=== PATIENT | male | born 1995 | race American Indian/Alaskan Native ===

== ENCOUNTER 2020-07-16 09:35 | Emergency (ER) | payer SELFPAY ==
[2020-07-16 10:32] VITALS: BP 132/80
--- NOTE | 2020-07-16 10:36 | Emergency Department Report ---
ED Abdominal Pain HPI - General Chief Complaint: Abdominal Pain Stated Complaint: ABD PAIN, BACK PAIN Time Seen by Provider: 07/16/20 10:32 Source: patient Mode of arrival: Ambulatory Limitations: No Limitations - History of Present Illness Initial Comments: Patient is a 24-year-old male presents emergency room complaints of left lower quadrant abdominal pain and left flank pain that began this morning around 4:45 AM. He has associated nausea and vomiting. He states he has had a couple episodes of diarrhea. He denies ever having this pain in the past. He denies any known sick contacts or recent travel. He states he last ate a burrito last night. He denies any dysuria, urinary frequency, dark urine, odor to the urine, hematochezia, melena, hematemesis, fever, pain or swelling in the testicles. Patient denies any past medical history or past surgeries. No allergies to medications. - Related Data Previous Rx's Medication Instructions Recorded Last Taken Type Ondansetron [Zofran Odt] 4 mg PO Q8HR PRN #10 tab.rapdis 07/16/20 Unknown Rx traMADoL [Ultram 50 MG tab] 50 mg PO Q6HR PRN #7 tablet 07/16/20 Unknown Rx Allergies Allergy/AdvReac Type Severity Reaction Status Date / Time No Known Allergies Allergy Verified 07/16/20 10:32 ED Review of Systems ROS: Stated complaint: ABD PAIN, BACK PAIN Other details as noted in HPI Comment: All other systems reviewed and negative ED Past Medical Hx - Past Medical History Previous Medical History?: No - Surgical History Past Surgical History?: No - Social History Smoking Status: Never Smoker Substance Use Type: None - Medications Home Medications: Home Medications Medication Instructions Recorded Confirmed Last Taken Type Ondansetron [Zofran Odt] 4 mg PO Q8HR PRN #10 tab.rapdis 07/16/20 Unknown Rx traMADoL [Ultram 50 MG tab] 50 mg PO Q6HR PRN #7 tablet 07/16/20 Unknown Rx ED Physical Exam - General Limitations: No Limitations General appearance: alert, in no apparent distress - Head Head exam: Present: atraumatic, normocephalic - Eye Eye exam: Present: normal appearance - ENT ENT exam: Present: mucous membranes moist - Respiratory Respiratory exam: Present: normal lung sounds bilaterally. Absent: respiratory distress, wheezes, rales, rhonchi, stridor, chest wall tenderness, decreased breath sounds, prolonged expiratory - Cardiovascular Cardiovascular Exam: Present: regular rate, normal rhythm, normal heart sounds. Absent: systolic murmur, diastolic murmur, rubs, gallop - GI/Abdominal GI/Abdominal exam: Present: soft, tenderness (LLQ), normal bowel sounds. Abs ent: distended, guarding, rebound, rigid - Back Exam Back exam: Present: CVA tenderness (L). Absent: CVA tenderness (R) - Neurological Exam Neurological exam: Present: alert, oriented X3 - Psychiatric Psychiatric exam: Present: normal affect, normal mood - Skin Skin exam: Present: warm, dry, intact ED Course Vital Signs 07/16/20 10:30 Temperature 98.5 F Pulse Rate 67 Respiratory 20 Rate Blood Pressure 132/80 O2 Sat by Pulse 98 Oximetry ED Medical Decision Making - Lab Data Result diagrams: 07/16/20 10:47 07/16/20 10:47 Lab Results 07/16/20 07/16/20 07/16/20 Range/Units 10:47 10:47 Unknown WBC 13.4 H (4.5-11.0) K/mm3 RBC 4.92 (3.65-5.03) M/mm3 Hgb 14.1 (11.8-15.2) gm/dl Hct 43.1 (35.5-45.6) % MCV 88 (84-94) fl MCH 29 (28-32) pg MCHC 33 (32-34) % RDW 13.4 (13.2-15.2) % Plt Count 189 (140-440) K/mm3 Lymph % (Auto) 8.4 L (13.4-35.0) % [place] % (Auto) 6.0 (0.0-7.3) % Eos % (Auto) 0.0 (0.0-4.3) % Baso % (Auto) 0.4 (0.0-1.8) % Lymph # (Auto) 1.1 L (1.2-5.4) K/mm3 [place] # (Auto) 0.8 (0.0-0.8) K/mm3 Eos # (Auto) 0.0 (0.0-0.4) K/mm3 Baso # (Auto) 0.1 (0.0-0.1) K/mm3 Seg Neutrophils % 85.2 H (40.0-70.0) % Seg Neutrophils # 11.4 H (1.8-7.7) K/mm3 Sodium 139 (137-145) mmol/L Potassium 4.3 (3.6-5.0) mmol/L Chloride 103.5 (98-107) mmol/L Carbon Dioxide 21 L (22-30) mmol/L Anion Gap 19 mmol/L BUN 16 (9-20) mg/dL Creatinine 1.5 H (0.8-1.3) mg/dL Estimated GFR > 60 ml/min BUN/Creatinine Ratio 11 % Glucose 147 H (75-100) mg/dL Calcium 9.2 (8.4-10.2) mg/dL Total Bilirubin 0.20 (0.1-1.2) mg/dL AST 18 (5-40) units/L ALT 24 (7-56) units/L Alkaline Phosphatase 58 (35-129) units/L Total Protein 7.2 (6.3-8.2) g/dL Albumin 3.9 (3.9-5) g/dL Albumin/Globulin Ratio 1.2 % Lipase 17 (13-60) units/L Urine Color Yellow (Yellow) Urine Turbidity Hazy (Clear) Urine pH 5.0 (5.0-7.0) Ur Specific [place] 1.031 H (1.003-1.030) Urine Protein 30 mg/dl (Negative) mg/dL Urine Glucose (UA) Neg (Negative) mg/dL Urine Ketones Neg (Negative) mg/dL Urine Blood Sm (Negative) Urine Nitrite Neg (Negative) Urine Bilirubin Neg (Negative) Urine Urobilinogen < 2.0 (<2.0) mg/dL Ur Leukocyte Esterase Neg (Negative) Urine WBC (Auto) 2.0 (0.0-6.0) /HPF Urine RBC (Auto) 9.0 (0.0-6.0) /HPF U Epithel Cells (Auto) 1.0 (0-13.0) /HPF Urine Mucus 3+ /HPF - Radiology Data Radiology results: report reviewed Ordering Physician: EDSON METZGER Date of Service: 07/16/20 Procedure(s): CT abdomen pelvis w con Accession Number(s): [id number] cc: EDSON METZGER CT ABDOMEN AND PELVIS WITH CONTRAST HISTORY: MAIN. Acute left lower quadrant and left flank pain COMPARISON: None. TECHNIQUE: CT images of the abdomen and pelvis were obtained following administration of intravenous contrast. All CT scans at this location are performed using CT dose reduction for ALARA by means of automated exposure control. CONTRAST: 100 ml of intravenous contrast administered. FINDINGS: Lungs/bones: Lung bases are clear. No acute osseous abnormality identified. Abdomen/pelvis: There is slight left-sided ureterectasis extending along the entire course of the left ureter with mild stranding. No stone disease identified in the ureter or bladder. This may reflect recent stone passage. Left kidney is otherwise unremarkable. There are simple cysts and 2 adjacent angiomyolipomata in the midpole of the right kidney measuring up to 1.1 cm in maximal dimension. There is mild hepatic steatosis. The gallbladder, spleen, pancreas, adrenals, and proximal GI tract appear unremarkable. Urinary bladder and prostate are unremarkable with no pelvic free fluid or acute colonic abnormality. The terminal ileum is normal. The appendix contains air without surrounding inflammation. IMPRESSION: 1. Probable recent kidney stone passage on the left as outlined above. 2. Additional incidental findings as above. Signer Name: Gui Orellana MD Signed: 07/16/2020 1:48 PM Workstation Name: [id number] Transcribed By: JW Dictated By: Gui Orellana MD Electronically Authenticated By: Gui Orellana MD Signed Date/Time: 07/16/20 1348 DD/ 1345 TD/TT: - Medical Decision Making Patient is a 24-year-old male presents emergency room complaints of left lower quadrant abdominal pain and left flank pain that began this morning around 4:45 AM. He has associated nausea and vomiting. He states he has had a couple episodes of diarrhea. He denies ever having this pain in the past. He denies any known sick contacts or recent travel. He states he last ate a burrito last night. He denies any dysuria, urinary frequency, dark urine, odor to the urine, hematochezia, melena, hematemesis, fever, pain or swelling in the testicles. Patient denies any past medical history or past surgeries. No allergies to medications. Vitals are normal. On exam patient has left lower quadrant and left flank tenderness palpation, no guarding, no rebound, no rigidity, normal bowel sounds, no peritoneal signs. Labs with mildly elevated white count, mildly elevated creatinine with normal BUN and GFR, mildly elevated blood glucose, UA without evidence of UTI. CT abdomen pelvis: 1. Probable recent kidney stone passage on the left as outlined above. 2. Additional incidental findings as above. On reexamination patient states that after he went to the bathroom he felt relief and no longer has pain. Patient likely passed kidney stone in the bathroom. Patient given IV fluids and Zofran, he politely declines morphine and states that his pain is much better and does not need pain medication. Patient given prescription for tramadol and Zofran. Advised patient Please take medication as prescribed as needed. Increase your fluid intake. Follow-up with your primary care doctor. Follow-up with urologist. Return to emergency room for new or symptoms. Critical care attestation.: If time is entered above; I have spent that time in minutes in the direct care of this critically ill patient, excluding procedure time. ED Disposition Clinical Impression: Nausea vomiting and diarrhea, Nephrolithiasis Abdominal pain Qualifiers: Abdominal location: left lower quadrant Qualified Code(s): R10.32 - Left lower quadrant pain Disposition: - TO HOME OR SELFCARE Is pt being admited?: No Does the pt Need Aspirin: No Condition: Stable Instructions: Kidney Stones, Abdominal Pain, Adult Additional Instructions: Please take medication as prescribed as needed. Increase your fluid intake. Follow-up with your primary care doctor. Follow-up with urologist. Return to emergency room for new or symptoms. Prescriptions: traMADoL [Ultram 50 MG tab] 50 mg PO Q6HR PRN #7 tablet PRN Reason: Pain , Severe (7-10) Ondansetron [Zofran Odt] 4 mg PO Q8HR PRN #10 tab.rapdis PRN Reason: nausea/vomiting Referrals: PRIMARY CARE, [Primary Care Provider] - 2-3 Days ELIU BENTLEY MD [Staff Physician] - 2-3 Days Forms: Work/School Release Form(ED) Time of Disposition: 14:30 Print Language: [place]
[2020-07-16 11:23] LABS: Bilirubin,Urine NEG (Negative); Blood,Urine SM (Negative); Color,Urine Yellow (Yellow); Mucus,Urine 3+ /HPF; Urobilinogen,Urine < 2.0 mg/dL (<2.0)
[2020-07-16 11:38] LABS: Basophils # (Auto) 0.1 K/mm3 (0.0-0.1); Basophils % (Auto) 0.4 % (0.0-1.8); Hematocrit 43.1 % (35.5-45.6); Hemoglobin 14.1 gm/dl (11.8-15.2); Lymphocytes # (Auto) 1.1 K/mm3 (1.2-5.4); Lymphocytes % (Auto) 8.4 % (13.4-35.0); Mean Corpuscular HGB Conc 33 % (32-34); Mean Corpuscular Volume 88 fl (84-94); Monocytes # (Auto) 0.8 K/mm3 (0.0-0.8); Platelet Count 189 K/mm3 (140-440); Red Blood Count 4.92 M/mm3 (3.65-5.03); Red Cell Distribution Width 13.4 % (13.2-15.2)
[2020-07-16 12:04] LABS: Alanine Aminotransferase 24 units/L (7-56); Albumin 3.9 g/dL (3.9-5); BUN/Creatinine Ratio 11; Blood Urea Nitrogen 16 mg/dL (9-20); Calcium 9.2 mg/dL (8.4-10.2); Hemolysis Index 6
--- NOTE | 2020-07-16 13:53 | Cat Scan Report ---
CT ABDOMEN AND PELVIS WITH CONTRAST HISTORY: MAIN. Acute left lower quadrant and left flank pain COMPARISON: None. TECHNIQUE: CT images of the abdomen and pelvis were obtained following administration of intravenous contrast. All CT scans at this location are performed using CT dose reduction for ALARA by means of automated exposure control. CONTRAST: 100 ml of intravenous contrast administered. FINDINGS: Lungs/bones: Lung bases are clear. No acute osseous abnormality identified. Abdomen/pelvis: There is slight left-sided ureterectasis extending along the entire course of the le ft ureter with mild stranding. No stone disease identified in the ureter or bladder. This may reflect recent stone passage. Left kidney is otherwise unremarkable. There are simple cysts and 2 adjacent a ngiomyolipomata in the midpole of the right kidney measuring up to 1.1 cm in maximal dimension. There is mild hepatic steatosis. The gallbladder, spleen, pancreas, adrenals, and proximal GI tract a ppear unremarkable. Urinary bladder and prostate are unremarkable with no pelvic free fluid or acute colonic abnormality. The terminal ileum is normal. The appendix contains air without surrounding inflammation. IMPRESSION: 1. Probable recent kidney stone passage on the left as outlined above. 2. Additional incidental findings as above. Signer Name: Gui Orellana MD Signed: 07/16/2020 1:48 PM Workstation Name: [id number]
[2020-07-16] MEDS ORDERED: MORPHINE 4 MG/1 ML INJ IV ONE (13:54)
[2020-07-16] MEDS ORDERED: SODIUM CHLORIDE 0.9% 1000 ML 1,000 ML IV ONE (13:54)
[2020-07-16] MEDS ORDERED: ONDANSETRON 4 MG/2 ML INJ IV ONE (13:54)
== END 2020-07-16 16:41 | disposition home or self-care (01) ==
LOC: ED 09:35
DX: N20.0 Calculus of kidney (principal); Z79.899 Other long term (current) drug therapy
CPT/HCPCS: 36415; 74177; 80053; 81001; 83690; 85025; 96361; 96374; 99284; J2270; J2405; J7030; Q9967